=== PATIENT | male | born 1985 | race Caucasian/White ===

== ENCOUNTER 2023-11-23 01:12 | Emergency (ER) | payer BC, SELFPAY ==
[2023-11-23 01:15] VITALS: BP 158/102
--- NOTE | 2023-11-23 02:19 | ED.GENMED ---
History of Present Illness
<SCOTT Murcia - Last Filed: 11/23/23 05:10>
General
Chief Complaint: Back Pain
Source: patient
Exam Limitations: none
Time Seen by Provider: 11/23/23 02:19
Nursing documentation reviewed up to this point in time: agreed with
History of Present Illness
History of Present Illness:
37 year old male presents for evaluation of low back pain. Pt reports that he has been experiencing left low back pain over the last 24 hours, but notes that he was awoken from sleep due to exacerbation of the pain approximately 2 hours ago.
Currently in moderate distress due to the pain. Pt endorses intermittent nausea, but denies feeling nauseas currently. He has not vomited. Pt has not taken any medications for his pain. Currently sharp, 6/10 in severity but intermittently worsens
per pt. Pt denies obvious inciting injury, but does report that he has begun hiking with weighted backpacks over the last week. No fever, CP, SOB, saddle anesthesia, urinary or fecal incontinence, dysuria, hematuria, increased frequency and urgency
of urination reported. No prior history of low back pain or nephrolithiasis per pt.
Past History
<SCOTT Murcia - Last Filed: 11/23/23 05:10>
Past History
ED Past Medical History: None
ED Past Surgical History: None
Social History
Tobacco: Non-smoker
Personal:
Review of Systems
<SCOTT Murcia - Last Filed: 11/23/23 05:10>
Review of Systems
Allergies reviewed?: Yes
Constitutional: Reports no symptoms
EENT: Reports no symptoms
Respiratory: Reports no symptoms
Cardiac: Reports no symptoms
ABD/GI: Reports no symptoms
: Reports flank pain (left flank/low back)
Musculoskeletal: Reports back pain (left low back )
Skin: Reports no symptoms
Neurological: Reports no symptoms
Phy Exam
<SCOTT Murcia - Last Filed: 11/23/23 05:10>
General Physical Exam
General Presentation: moderate distress
General age: appears stated age
General Skin: warm
General Habitus: normal
General Mental: alert
General Hydration: appears well hydrated
Cardiovascular Exam
Cardiovascular Exam: regular rate/rhythm
Pulmonary Exam
Pulmonary Exam: lungs clear and no respiratory distress
Gastrointestinal Exam
Gastrointestinal Exam: normal bowel sounds and non distended
Musculoskeletal Exam
Musculoskeletal Exam: back pain (Exacerbated with flexion. No bony tenderness of the vertebrae) and other (positive straight leg raise on left side )
Course
<SCOTT Murcia - Last Filed: 11/23/23 05:10>
Orders/Labs/Results
Orders:
Orders
11/23/23 02:34
CT Abd/pel Without Iv Or Oral Urgent
Comment:
Reason For Exam: lower back pain
11/23/23 02:44
Complete Blood Count/With Diff Urgent
Comprehensive Metabolic Panel Urgent
Urinalysis Reflex To Culture Urgent
Date Specimen was Collected: 11/23/23
Time Specimen was Collected: 02:35
11/23/23 02:47
Ketorolac [Toradol] 30 mg .ROUTE .STK-MED ONE
Ketorolac [Toradol] 30 mg IV NOW STA
11/23/23 04:16
Diazepam [Valium] 5 mg PO NOW STA
Ketorolac [Toradol] 30 mg IM NOW STA
Abnormal Lab Results
11/23/23
02:44
RBC 4.45 L 10^6/uL
(4.70-6.10)
MCH 32.6 H pg
(27.0-31.0)
Absolute Monos (auto) 1.0 H 10^3/uL
(0.1-0.6)
Monocytes % 12.1 H %
(1.7-9.3)
Glucose 100 H mg/dl
(70-99)
Urine Ketones Trace A
(Negative)
11/23/23 02:44
11/23/23 02:44
Vital Signs
Initial and Last Documented VS:
Initial Vital Signs
Temp Pulse Resp BP Pulse Ox
99 F 96 24 158/102 100
11/23/23 01:15 11/23/23 01:15 11/23/23 01:15 11/23/23 01:15 11/23/23 01:15
Last Documented Vital Signs
Temp Pulse Resp BP Pulse Ox
97.9 F 71 18 127/90 98
11/23/23 04:39 11/23/23 04:39 11/23/23 04:39 11/23/23 04:39 11/23/23 04:39
<Ben Alcantar, DO - Last Filed: 11/23/23 04:27>
Orders/Labs/Results
Orders:
Orders
11/23/23 02:34
CT Abd/pel Without Iv Or Oral Urgent
Comment:
Reason For Exam: lower back pain
11/23/23 02:44
Complete Blood Count/With Diff Urgent
Comprehensive Metabolic Panel Urgent
Urinalysis Reflex To Culture Urgent
Date Specimen was Collected: 11/23/23
Time Specimen was Collected: 02:35
11/23/23 02:47
Ketorolac [Toradol] 30 mg .ROUTE .STK-MED ONE
Ketorolac [Toradol] 30 mg IV NOW STA
11/23/23 04:16
Diazepam [Valium] 5 mg PO NOW STA
Ketorolac [Toradol] 30 mg IM NOW STA
Abnormal Lab Results
11/23/23
02:44
RBC 4.45 L 10^6/uL
(4.70-6.10)
MCH 32.6 H pg
(27.0-31.0)
Absolute Monos (auto) 1.0 H 10^3/uL
(0.1-0.6)
Monocytes % 12.1 H %
(1.7-9.3)
Glucose 100 H mg/dl
(70-99)
Urine Ketones Trace A
(Negative)
11/23/23 02:44
11/23/23 02:44
Vital Signs
Initial and Last Documented VS:
Initial Vital Signs
Temp Pulse Resp BP Pulse Ox
99 F 96 24 158/102 100
11/23/23 01:15 11/23/23 01:15 11/23/23 01:15 11/23/23 01:15 11/23/23 01:15
Last Documented Vital Signs
Temp Pulse Resp BP Pulse Ox
97.9 F 71 18 127/90 98
11/23/23 04:39 11/23/23 04:39 11/23/23 04:39 11/23/23 04:39 11/23/23 04:39
<SCOTT Murcia - Last Filed: 11/23/23 05:10>
MDM/Problems Addressed
Differential Diagnosis Includes:
nephrolithiasis, cystitis, pyelonephritis, herniated lumbar disc, sciatica, cauda equina syndrome, spinal stenosis
<SCOTT Murcia - Last Filed: 11/23/23 05:10>
*Critical Care Note
Total Time (30-74mins, 75-104mins- exclusive of procedures): Not Applicable
<Ben Alcantar DO - Last Filed: 11/23/23 04:27>
*Critical Care Note
Total Time (30-74mins, 75-104mins- exclusive of procedures): Not Applicable
<Ben Alcantar DO - Last Filed: 11/23/23 04:27>
Update Note
Update Note:
CT AP NONCON
IMPRESSION:
No obstructing urinary calculi. Probable small L renal cyst with dense debris.
Slightly prominent bladder wall, but not distended.
Unremarkable GB and ducts.
Normal appendix.
Multiple colonic diverticula.
ED Attending Note
<SCOTT Murcia - Last Filed: 11/23/23 05:10>
-
Portions of this chart may have been created with voice recognition software.� Occasional wrong word or��sound alike� substitutions may have occurred due to the inherent limitations of voice recognition software.
<Ben Alcantar DO - Last Filed: 11/23/23 04:27>
ED Attending Note
Patient seen and examined by attending physician: Yes
I performed the substantive portion of visit, reviewed & personally made and approve the management plan that is documented in note by myself or CECILE.: Yes
ED Attending Note:
Pleasant 37-year-old male awakened from sleep with left lower back pain. He stated was sharp and came in waves. Patient arrived to the hospital get a dose of Toradol and the pain resolved. Denies bowel or bladder retention or incontinence.
Reports no difficulty ambulating. Denies any saddle anesthesia. Reports no difficulty urinating. Patient was seen in conjunction with the PA student. I have reviewed and agree with the history and treatment plan presented. On my independent
physical exam, patient is awake, alert, and oriented x3, no acute distress. Negative straight leg raising test after Toradol administration. No paresthesias. Patient was on a flight several weeks back and had some numbness in his calf. He did
not get it evaluated he has no further symptoms. I did offer further imaging including ultrasound but patient refused. Patient will be discharged home with Toradol.
Discharge Plan
Departure
Patient Disposition: Home (Routine Discharge)
Date of Disposition: 11/23/23
Time of Disposition: 04:26
Patient with high blood pressure during this ER visit?: Yes
Discharge Problem:
Low back pain
Instructions: Low Back Pain (DC), Sciatica (DC), BLOOD PRESSURE
Prescriptions:
New
diclofenac sodium 75 mg tablet,delayed release (DR/EC)
75 mg PO BID Qty: 10 0RF
No Action
ustekinumab [Stelara] 90 MG/ML syringe
90 mg SQ [id number]
cephalexin 500 mg capsule
500 mg PO BID 7 Days Qty: 14 0RF
Referrals:
Ida Méndez CRNP [Family Provider] -
Activity Restrictions/Additional Instructions:
It was a pleasure meeting you and taking part in your care. We hope for your continued healing and wellness.
Please read discharge instructions in their entirety. However, they are for general education and may not describe your exact diagnosis at discharge. Information on your ER visit and medical conditions were discussed with you along with appropriate
follow up information...
If indicated, please take your medications as instructed and indicated on discharge paperwork.
Please schedule a follow up appointment as directed. Call to schedule an appointment
Please return to the emergency department with ANY change in, persisting, or worsening of symptoms. If any of your symptoms do not improve, or persist, or become more severe within 6-12 hours, please return to the emergency department for further
care.
Please return to the emergency department if you develop a headache, neck pain/stiffness, fever greater than 100.4F, chest pain, shortness of breath, persistent nausea, vomiting, slurred speech, difficulty walking, numbness/tingling, weakness, signs
of infection or any other symptoms that are worrisome to you.
If you have any questions or concerns please do not hesitate to call the Hospital at or E-mail me directly at [email or web address]
Interventions
Interventions:
*Risk Screen - Suicide Last Done: 11/23/23 01:15
*General Assessment Last Done: 11/23/23 02:56
*Neglect/Abuse Screening Last Done: 11/23/23 01:15
ED- Fall Risk Assessment Last Done: 11/23/23 02:56
*ED COVID-19 Vaccine History Last Done: 11/23/23 02:56
*Nursing Disposition Last Done: 11/23/23 04:39
ED-Musculoskeletal Assessment Last Done: 11/23/23 02:12
Discharge Date and Time
Discharge Date/Time: 11/23/23 04:40
Print Language: CAMBODIAN
[2023-11-23] MEDS: TORADOL 30 MG IV (02:48)
[2023-11-23 02:52] LABS: % Basophils 0.4 % (0-2); % Eosinophils 3.2 % (0-6); % Immature Granulocytes 0.4 % (0-0.5); % Lymphocytes 20.7 % (20.5-51.1); % Monocytes 12.1 % (1.7-9.3); % Neutrophils 63.2 % (42.2-75.2); Absolute Eosinophils 0.3 10^3/uL (0-0.7); Absolute Lymphocytes 1.7 10^3/uL (1.2-3.4); Absolute Neutrophils 5.3 10^3/uL (1.4-6.5); Hematocrit 41.4 % (39.0-52.0); Hemoglobin 14.5 g/dL (13.0-18.0); Mean Corpuscular Hgb 32.6 pg (27.0-31.0); Mean Platelet Volume 10.1 fL (7.4-10.4); Nucleated Red Blood Cells % 0 % (-); Platelet Count 195 10^3/uL (130-400); Red Blood Cell Count 4.45 10^6/uL (4.70-6.10); Red Cell Dist. Width 13.3 % (11.5-14.5); Urine Albumin Negative (Neg - Trace); Urine Bilirubin Negative (Negative); Urine Character Clear (Clear); Urine Color Yellow; Urine Glucose Negative (Negative); Urine Ketone Trace (Negative); Urine Leukocyte Negative (Negative); Urine Nitrite Negative (Negative); Urine Occult Blood Negative (Negative); Urine Urobilinogen Negative (Neg - 1+); White Blood Cell Count 8.4 10^3/uL (4.8-10.8)
[2023-11-23 03:05] LABS: ALT (SGPT) 32 U/L (0-50); AST (SGOT) 34 U/L (17-59); Albumin 4.4 g/dl (3.5-5.0); Alkaline Phosphatase 53 U/L (38-126); Blood Urea Nitrogen 10 mg/dl (9-20); Calcium 9.4 mg/dl (8.4-10.2); Carbon Dioxide 27 mmol/L (22-30); Chloride 101 mmol/L (98-107); Glucose 100 mg/dl (70-99); Potassium 3.9 mmol/L (3.5-5.1); Sodium 138 mmol/L (135-145); Total Bilirubin 0.6 mg/dl (0.2-1.3); Total Protein 6.6 g/dl (6.3-8.2); eGFR > 60.00
[2023-11-23 04:39] VITALS: BP 127/90
== END 2023-11-23 04:40 | disposition home or self-care (01) ==
LOC: EMR 01:12
PROVIDERS: EMERGENCY PHYSICIAN Student in an Organized Health Care Education/Training Program; FAMILY PHYSICIAN Nurse Practitioner
DX: M54.50 Low back pain, unspecified (principal); R03.0 Elevated blood-pressure reading, without diagnosis of hypertension; K57.30 Diverticulosis of large intestine without perforation or abscess without bleeding; F41.9 Anxiety disorder, unspecified; Z86.16 Personal history of COVID-19
CPT/HCPCS: 99284; 96374; 74176; 80053; 81003; 85025

== ENCOUNTER → 2024-01-12 08:04 | Outpatient (REF) | payer BC, SELFPAY | LOC: HWRAD 08:04 | PROVIDERS: ATTENDING PHYSICIAN Nurse Practitioner | DX: N28.1 Cyst of kidney, acquired (principal) | CPT/HCPCS: 74170; Q9967 ==

== ENCOUNTER → 2024-09-01 08:49 | Outpatient (REF) | payer BC, SELFPAY | LOC: HWRCS 08:49 | PROVIDERS: ATTENDING PHYSICIAN Nurse Practitioner Adult Health | DX: I51.7 Cardiomegaly (principal); R03.0 Elevated blood-pressure reading, without diagnosis of hypertension | CPT/HCPCS: 93306 ==

== ENCOUNTER 2024-09-11 18:08 | Emergency (ER) | payer BC, SELFPAY ==
[2024-09-11 18:10] VITALS: BP 157/100
[2024-09-11 18:40] VITALS: BMI 28.1
--- NOTE | 2024-09-11 19:36 | ED.GENMED ---
History of Present Illness
General
Chief Complaint: Skin Problem
Time Seen by Provider: 09/11/24 19:36
History of Present Illness
History of Present Illness:
TIME OF INITIAL ENCOUNTER: 7:40 PM
HPI: Patient tripped going up stairs and struck the left eyebrow region on the banister. This caused small laceration. There is some left periorbital pain along with his subconjunctival hemorrhage but reports no change in his vision. There has
been no concussion type of symptoms. The patient had some mild nausea prior to arrival which resolved prior to arrival. No vomiting.
EXAM:
GENERAL: Well appearing in no distress
CERVICAL SPINE: Excellent AROM
HEAD: There is no forehead hematoma or periorbital hematoma however there is a 1.5 cm laceration inferior to the medial aspect of the right eyebrow, no hyphema, subconjunctival hemorrhage noted to the laterally
ABDOMEN: No abdominal tenderness, no peritoneal signs
EXTREMITIES: Normal active range of motion, no tenderness
NEURO: Excellent strength all extremities, appropriate mental status, normal speech/language
NUMBER AND COMPLEXITY OF PROBLEMS ADDRESSED AT THE ENCOUNTER
� Chronic conditions affecting care: A-fib at age 32 with spontaneous conversion, otherwise no significant medical history
� Acute Exacerbation and/or Progression of Chronic Illness: This is an acute problem
� Differential Diagnosis includes: Facial laceration, subconjunctival hemorrhage, no evidence for hyphema, no clinical evidence for concussion or serious head injury
AMOUNT AND/OR COMPLEXITY OF DATA TO BE REVIEWED AND ANALYZED
� I performed an independent evaluation of and my interpretation is:
EKG:
CT:
X-rays:
Laboratory Studies:
Other:
� Review of other/old records: I reviewed records, the patient had tetanus shot last year
� Clinical information was obtained by an independent historian: I spoke to at bedside
� Prescriptions/Medications Considered but not given:
� Further testing considered but not performed: No clear indication for CT imaging of the brain patient has excellent mental status
RISK OF COMPLICATIONS AND/OR MORBIDITY OR MORTALITY OF PATIENT MANAGEMENT
� Social determinants of health affecting care: Lives at home
� Discussion with other providers:
� Escalation of care including admission/observation vs risk of discharge considered: The patient's wound was irrigated and cleaned. 2 stitches were placed.
ANY OTHER UPDATES:
Past History
Past History
ED Past Medical History: None
ED Past Surgical History: None
Social History
Tobacco: Non-smoker
Personal:
Phy Exam
Physical Exam
Physical Exam:
See HPI
Course
Vital Signs
Initial and Last Documented VS:
Initial Vital Signs
Temp Pulse Resp BP Pulse Ox
37.2 C 82 18 157/100 96
09/11/24 18:10 09/11/24 18:10 09/11/24 18:10 09/11/24 18:10 09/11/24 18:10
Last Documented Vital Signs
Temp Pulse Resp BP Pulse Ox
37.2 C 82 18 157/100 96
09/11/24 18:10 09/11/24 18:10 09/11/24 18:10 09/11/24 18:10 09/11/24 18:10
Procedures
Laceration Closure
Left Upper Face:
Status of Wound: clean
Description of Wound Edges: sharp
Preparation: cleaned with saline and other (Chlorhexidine)
Anesthesia: 1% Lidocaine
Revision/Debridement: routine- no revision
Wound exploration: explored to base- no FB
Type of Closure: single layer closure
Skin Closure Material: 5-0 prolene
Number of sutures: 2
*Critical Care Note
Total Time (30-74mins, 75-104mins- exclusive of procedures): Not Applicable
ED Attending Note
-
Portions of this chart may have been created with voice recognition software.� Occasional wrong word or��sound alike� substitutions may have occurred due to the inherent limitations of voice recognition software.
Discharge Plan
Departure
Prescriptions:
No Action
ustekinumab [Stelara] 90 MG/ML syringe
90 mg SQ [id number]
cephalexin 500 mg capsule
500 mg PO BID 7 Days Qty: 14 0RF
diclofenac sodium 75 mg tablet,delayed release (DR/EC)
75 mg PO BID Qty: 10 0RF
Referrals:
Tara Pereyra CRNP [Family Provider] -
Interventions
Interventions:
*Risk Screen - Suicide Last Done: 09/11/24 18:11
*General Assessment Last Done: 09/11/24 18:12
*Neglect/Abuse Screening Last Done: 09/11/24 18:11
*ED COVID-19 Vaccine History Last Done: 09/11/24 18:11
*Nursing Disposition Last Done: 09/11/24 19:55
ED-Skin Assessment Last Done: 09/11/24 18:41
Discharge Date and Time
Print Language: BELARUSIAN
== END 2024-09-11 20:11 | disposition home or self-care (01) ==
LOC: EMR 18:08
PROVIDERS: EMERGENCY PHYSICIAN Emergency Medicine; FAMILY PHYSICIAN Nurse Practitioner Adult Health
DX: S01.111A Laceration without foreign body of right eyelid and periocular area, initial encounter (principal); W22.09XA Striking against other stationary object, initial encounter
CPT/HCPCS: 99282; 12011

== ENCOUNTER 2025-01-01 09:01 | Emergency (ER) | payer BC, SELFPAY ==
[2025-01-01 09:03] VITALS: BP 160/118
--- NOTE | 2025-01-01 09:16 | ED.GENMED ---
History of Present Illness
General
Chief Complaint: Crisis Evaluation
Time Seen by Provider: 01/01/25 09:16
History of Present Illness
History of Present Illness:
PAST MEDICAL HISTORY AND REVIEW OF OLD RECORDS
- The patient has a history of having A-fib once in the past with spontaneous conversion, anxiety/depression, ADHD. I reviewed records I saw this patient back in September with a facial laceration
Note:
CHIEF COMPLAINT(S)
Thoughts of self-harm and medication-related issues.
HISTORY OF PRESENT ILLNESS
The patient is a 39-year-old male who presents with a concern regarding his mental health. The patient reports, 'I just felt like hes not right,' indicating a state of emotional distress. Over the past few days, he has had an increase in feelings
associated with anxiety and depression following a change in his medication regimen. The patient had previously been prescribed venlafaxine and was bupropion was recently added. However, the combination was not well-tolerated, leading to cessation
of bupropion and continuation with venlafaxine alone as of December 20.
The patient denies any chest pain, abdominal pain, but mentions experiencing nausea due to taking his medication without food. There is no current plan for self-harm, but the presence of firearms in the home has caused concern for safety, as
discussed with his spouse. Crisis intervention services have not yet been engaged during the visit.
SOCIAL DETERMINANTS AFFECTING HEALTH
The patients spouse reports that they own firearms, which are safely secured at home. The spouse is concerned about leaving the patient home alone given his current mental state and was proactive in seeking mental health resources, demonstrating an
awareness of the potential risk factors in their living environment.
MEDICATIONS
The patient is currently taking venlafaxine for the management of anxiety and depression.
PHYSICAL EXAM
General: Alert, no acute distress.
Skin: Warm, dry.
Head: Normocephalic, atraumatic.
Neck: Supple, trachea midline.
Eye, Ears, Nose, Mouth, and Throat: Oral mucosa moist.
Cardiovascular: Normal peripheral perfusion, no edema.
Respiratory: Respirations are non-labored.
Gastrointestinal: Abdomen nondistended.
Back: Normal range of motion, normal alignment.
Musculoskeletal: Normal range of motion, normal strength.
Neurological: Alert and oriented to person, place, time, and situation. No focal neurological deficit observed.
Psychiatric: Cooperative, but has somewhat of a flat depressed affect but also laughs appropriately at times
PROBLEM LIST
Acute:
- Thoughts of self-harm and medication-related side effects.
PLAN
- Engage crisis intervention team to assess the patients mental health and develop a safety plan.
- Consider prescribing an antiemetic such as ondansetron for nausea relief related to medication administration without food.
- Continue monitoring and support for the patient regarding current emotional distress and anxiety management.
DIFFERENTIAL DIAGNOSIS
The Differential Diagnosis includes, in no particular order and is not limited to:
1. Major depressive disorder with potential suicidal ideation
2. Adjustment disorder with depressed mood
3. Anxiety disorder exacerbated by medication changes
4. Medication-induced mood disorder
5. Bipolar disorder
6. Substance-induced mood disorder
7. Psychotic disorder
8. Personality disorder
9. Dysthymia
10. Generalized anxiety disorder
UPDATE
-SUMMARY OF ENCOUNTER
The patient, a 39-year-old male, presented to the emergency department due to increased feelings of anxiety and emotional distress following a change in his medication regimen. Although the patient already possesses medication for anxiety on an
as-needed basis, it was determined that administering a dose in the emergency department could help alleviate his current symptoms.
EMERGENCY TREATMENTS ADMINISTERED
A dose of the patients as-needed anxiety medication was administered during this visit to help manage severe anxiety symptoms.
PLAN
The patient will continue regular monitoring and support for anxiety management. Additional mental health resources may be engaged if needed, based on the patients ongoing response to treatment.
PATIENT EDUCATION AND COUNSELING
The patient was advised on the use of as-needed anxiety medication, including the potential risks of dependency with increased use and was instructed to use the medication judiciously.
MEDICATION RECONCILIATION
A dose of the patients currently prescribed as-needed medication for anxiety was administered. The patient is advised to continue taking venlafaxine for ongoing management of anxiety and depression.
MEDICAL DECISION MAKING
- Complexity of Data Reviewed: Chronic conditions affecting care include anxiety and depression. Differential diagnoses considered: Major depressive disorder with potential suicidal ideation, adjustment disorder with depressed mood, anxiety disorder
exacerbated by medication changes, medication-induced mood disorder, bipolar disorder, substance-induced mood disorder, psychotic disorder, personality disorder, dysthymia, generalized anxiety disorder.
DIAGNOSIS
Anxiety exacerbated by medication changes (ICD-10 F41.9).
The patient was seen by crisis who agrees with outpatient management. The patient states he has been under stress with decreased work and we gave a low dose of alprazolam 0.5 mg. The states that she will have the guns removed from the house.
The patient is calling his psychiatrist and therapist for close outpatient follow-up
Past History
Past History
ED Past Medical History: None
ED Past Surgical History: None
Social History
Tobacco: Non-smoker
Personal:
Phy Exam
Physical Exam
Physical Exam:
See HPI
Course
Orders/Labs/Results
Orders:
Orders
01/01/25 09:23
1:1 Observation - Suicide/ Violent Behavior As Directed
Crisis Consult Urgent
Reason for Consult: SI
01/01/25 10:54
Alprazolam [Xanax] 0.5 mg PO NOW STA
Vital Signs
Initial and Last Documented VS:
Initial Vital Signs
Temp Pulse Resp BP Pulse Ox
36.6 C 110 20 160/118 99
01/01/25 09:03 01/01/25 09:03 01/01/25 09:03 01/01/25 09:03 01/01/25 09:03
Last Documented Vital Signs
Temp Pulse Resp BP Pulse Ox
36.9 C 82 20 136/81 99
01/01/25 09:40 01/01/25 09:40 01/01/25 09:40 01/01/25 09:40 01/01/25 09:40
*Pulse Oximetry
SaO2: 99
Oxygen Mode of Delivery: Room air
Patient hypoxic: no
*Critical Care Note
Total Time (30-74mins, 75-104mins- exclusive of procedures): Not Applicable
ED Attending Note
-
Portions of this chart may have been created with voice recognition software.� Occasional wrong word or��sound alike� substitutions may have occurred due to the inherent limitations of voice recognition software.
Discharge Plan
Departure
Patient Disposition: Home (Routine Discharge)
Date of Disposition: 01/01/25
Time of Disposition: 11:22
Patient with high blood pressure during this ER visit?: Yes
Discharge Problem:
Anxiety
Instructions: Anxiety, Adult (DC), Suicide prevention
Prescriptions:
No Action
venlafaxine 150 mg Capsule,Extended Release 24hr
150 mg PO DAILY
Referrals:
UNKNOWN,PT [Family Provider]
Activity Restrictions/Additional Instructions:
Follow-up with your psychiatrist and therapist. Return here if worse or other concerns.
Interventions
Interventions:
*Risk Screen - Suicide Last Done: 01/01/25 09:03
*General Assessment Last Done: 01/01/25 09:40
*Neglect/Abuse Screening Last Done: 01/01/25 09:03
*ED- Fall Risk Assessment Last Done: 01/01/25 09:40
*ED COVID-19 Vaccine History Last Done: 01/01/25 09:40
*Nursing Disposition Last Done: 01/01/25 11:44
ED-Psychological Assessment Last Done: 01/01/25 09:40
Discharge Date and Time
Discharge Date/Time: 01/01/25 11:45
Print Language: CAMEROONIAN
[2025-01-01 09:40] VITALS: BP 136/81; BMI 28.0
[2025-01-01] MEDS: XANAX 0.5 MG PO (11:04)
== END 2025-01-01 11:45 | disposition home or self-care (01) ==
LOC: EMR 09:01
PROVIDERS: EMERGENCY PHYSICIAN Emergency Medicine
DX: F41.9 Anxiety disorder, unspecified (principal); F32.A Depression, unspecified; Z79.899 Other long term (current) drug therapy
CPT/HCPCS: 99283